=== PATIENT | male | born 1945 | race Caucasian/White ===

== ENCOUNTER → 2018-06-18 | Outpatient (CLI) | payer MEDICARE, BC | END | disposition home or self-care (01) | LOC: LAB SHORT 17:48 → LAB 17:48 | DX: L60.2 Onychogryphosis (principal); B35.1 Tinea unguium | CPT/HCPCS: 88305; 88312 ==

== ENCOUNTER 2020-07-23 06:15 | Day surgery (SDC) | payer MEDICARE, BC ==
[~2020-07-23] VITALS: Ht 175 cm; Wt 96.2 kg
[~2020-07-23 06:15] MED LIST: ALPHA LIPOIC AC50 MG PO; ASCO500 PO; ATOR20 PO; Colace100 MG PO; HYDR1TAB94 PO; LEVOCETIRIZINE D5 MG PO; METF500 PO; MULTI-VITAMIN1 EAC2 PO; PRED20 PO; Prinivil10 MG PO; Vitamin B Comple1 EA PO
--- NOTE | 2020-07-23 07:51 | NUR ---
Ambulatory in Day Surgery History, Chart, Medications and Allergies reviewed before start of procedure.Patient confirms NPO status and agrees with scheduled surgery. Patient reports completing Chlorhexadine shower X2 prior to admission to hospital.Surgical site prepped with 2% Chlorhexidine cloth wipe.
--- NOTE | 2020-07-23 12:30 | NUR ---
pt discharged and wheeled out to car pt not in parking lot called ride no answer showed up finally ap[parently pts spouse went to pick and shovel man rxs iv dcd intact pt given dc folder and hard copy rx
--- NOTE | 2020-07-26 07:30 | NUR ---
07/26/20 0730 Noemy Warner VERIFICATIONS: EDIT CHART.
== END 2020-07-23 22:55 | disposition home or self-care (01) ==
LOC: ORSCMMR 06:15 → ORD 07:30 → ORSCMMR 07:30
PROVIDERS: Surgery
PROC: 0YU54JZ Supplement Right Inguinal Region with Synthetic Substitute, Percutaneous Endoscopic Approach (ICD-10-PCS; principal; 2020-07-23 07:30)
PROC: 8E0W4CZ Robotic Assisted Procedure of Trunk Region, Percutaneous Endoscopic Approach (ICD-10-PCS; principal; 2020-07-23 07:30)
DX: K40.30 Unilateral inguinal hernia, with obstruction, without gangrene, not specified as recurrent (principal); I10 Essential (primary) hypertension; E78.5 Hyperlipidemia, unspecified; G47.33 Obstructive sleep apnea (adult) (pediatric); E11.8 Type 2 diabetes mellitus with unspecified complications; Z79.84 Long term (current) use of oral hypoglycemic drugs; Z79.899 Other long term (current) drug therapy
CPT/HCPCS: 49650; S2900; 82947; A9270-GY; C1713; J0690; J1100; J2250; J2370; J2405; J2704; J2765; J3010; J7120

== ENCOUNTER 2020-09-27 21:38 | Emergency (ER) | payer MEDICARE, BC ==
[~2020-09-27] VITALS: Ht 175.3 cm; Wt 93.0 kg
[2020-09-27] MEDS ORDERED: ATORVASTATIN CA20 MG PO (21:47)
== END 2020-09-27 23:47 | disposition home or self-care (01) ==
LOC: ER 21:38
DX: S00.03XA Contusion of scalp, initial encounter (principal); S00.83XA Contusion of other part of head, initial encounter; S80.211A Abrasion, right knee, initial encounter; Z79.84 Long term (current) use of oral hypoglycemic drugs; Z79.52 Long term (current) use of systemic steroids; Z87.891 Personal history of nicotine dependence; Z79.899 Other long term (current) drug therapy; W01.0XXA Fall on same level from slipping, tripping and stumbling without subsequent striking against object, initial encounter
CPT/HCPCS: 12011; 70450; 72125; 99283-25